=== PATIENT | male | born 1965 | race Caucasian/White ===

== ENCOUNTER → 2021-10-15 16:59 | Outpatient (BNVA) | payer OTHER, SELFPAY | PROVIDERS: Family Provider Family Medicine; PCP Family Medicine; Visit Provider Nurse Practitioner | DX: S83.232A Complex tear of medial meniscus, current injury, left knee, initial encounter (principal); M22.42 Chondromalacia patellae, left knee; M71.22 Synovial cyst of popliteal space [Baker], left knee; M25.562 Pain in left knee | CPT/HCPCS: 85025; 86618; 86666; 86757; 87880 ==

== ENCOUNTER → 2021-11-10 11:27 | Outpatient (BNVA) | payer OTHER, SELFPAY | PROVIDERS: Family Provider Family Medicine; PCP Family Medicine; Referring Provider Nurse Practitioner; Visit Provider Orthopaedic Surgery | DX: M25.562 Pain in left knee (principal) | CPT/HCPCS: 73562 ==

== ENCOUNTER 2021-12-13 08:50 | Outpatient (CLI) | payer OTHER, SELFPAY ==
--- NOTE | 2021-12-13 09:30 | MR_ITS ---
WS: [id number] MRI LEFT KNEE NONCONTRAST TECHNIQUE: Axial PD, coronal PD fat sat, coronal PD, sagittal PD, and sagittal PD fat-sat images obta ined. CLINICAL INFORMATION: Knee pain COMPARISON: None. FINDINGS: Distal quadriceps and patella tendons are intact. Normal ACL and PCL. Normal lateral meniscus. Comple x horizontal and radial tear involving the posterior horn medial meniscus extending to the articular surface. Anterior meniscus has a more normal appearance. Small suprapatellar effusion. Prepatellar soft tissue edema. Moderate chondromalacia patella worse in volving the medial patella facet. Normal medial and lateral collateral ligaments. Tiny lobulated popl iteal cyst measuring 10 x 6 mm. Medial and lateral collateral ligaments are intact. MR/MR knee LT wo con* [id number] IMPRESSION: 1. Complex horizontal and radial tear involving the posterior horn medial meni scus extending to the articular surface. 2. Normal lateral meniscus. 3. Normal ACL and PCL. 4. 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 5. Small lobulated popliteal cyst measuring 5 x 10 mm. 6. Normal medial and lateral collateral ligaments. 7. Moderate chondromalacia involving the medial and lateral joint compartments worse involving the medial joint compartment. No subchondral edema. Outbridge grading: grade III: partial-thickness cartilage loss with focal ulcer ation
== END 2021-12-13 08:51 | disposition home or self-care (01) ==
LOC: RAD 08:53
PROVIDERS: Family Provider Family Medicine; PCP Family Medicine; Visit Provider Orthopaedic Surgery
DX: M25.562 Pain in left knee (principal)
CPT/HCPCS: 73721